=== PATIENT | male | born 1980 | race Caucasian/White ===

== ENCOUNTER → 2016-07-29 | Outpatient (CLI) | payer OTHER ==
[2016-06-18 22:08] VITALS: BP 144/87
[~2016-07-29] MED LIST: IBUP-1060 PO
--- NOTE | 2016-07-29 13:16 | KCIC ---
PROCEDURE CT of the sternoclavicular joints HISTORY Sternoclavicular joint separation on the right. Lifting injury a few months ago. COMPARISON None TECHNIQUE Standard noncontrast images are obtained through the sternoclavicular joints. Exposure: One or more of the following individualized dose reduction techniques were utilized for this exam: 1. Automated exposure control. 2. Adjustment of the mA and/or kV according to patient size. 3. Use of iterative reconstruction technique. FINDINGS Subtle elevation of the right clavicle relative to the left, as seen on the coronal images. On the axial images and coronal images, there is slight widening of the right sternoclavicular joint as compared with the left. No gross dislocation. No evidence of asymmetric soft tissue swelling about either sternoclavicular joint. No acute fracture. No aggressive bone destruction. No evidence of fluid collection. Visualized lung apices are clear.. IMPRESSION Subtle widening of the right sternoclavicular joint. No gross dislocation. Electronically signed by: Lew Vega MD (Jul 29, 2016 13:14:50)
== END | disposition home or self-care (01) ==
LOC: KCIC CT 10:18
PROVIDERS: ATTEND Orthopaedic Surgery Sports Medicine
DX: S43.201A Unspecified subluxation of right sternoclavicular joint, initial encounter (principal)
CPT/HCPCS: 73200

== ENCOUNTER 2016-08-17 06:11 | Observation (INO) | payer OTHER ==
[2016-08-17] VITALS (10 sets, daily range): BP systolic 123–159; BP diastolic 62–93
[~2016-08-17] VITALS: Ht 182.9 cm; Wt 124.7 kg
[~2016-08-17 06:11] MED LIST changes: +CEFAZOLIN 2GM PREMIX 50 ML IV PRN
[2016-08-17] MEDS ORDERED: LIDOCAINE 1% PF 30 ML VIAL. ONE (06:57)
[2016-08-17] MEDS ORDERED: BUPIVACAINE MPF 0.5% 30 ML VIAL. ONE (06:57)
[2016-08-17] MEDS ORDERED: FENTANYL PF 100 MCG/2 ML VIAL. IV PRN (07:00)
[2016-08-17] MEDS ORDERED: HYDROMORPHONE 2 MG/ML VIAL. IV PRN ×2 (07:00→07:45)
[2016-08-17] MEDS ORDERED: IV RINGERS,LACTATED 1000ML 1,000 ML IV SCH (07:00)
[2016-08-17] MEDS ORDERED: PROCHLORPERAZINE 10 MG/2 ML VIAL. IV PRN (07:00)
[2016-08-17] MEDS ORDERED: ONDANSETRON PF 4 MG/2 ML VIAL. IV PRN (07:00)
[2016-08-17] MEDS ORDERED: LIDOCAINE 1% 1 ML SYRINGE. ID PRN (07:00)
[2016-08-17] MEDS ORDERED: MORPHINE SULFATE 2 MG/ML DISP.SYRIN. IV PRN (07:00)
[2016-08-17] MEDS ORDERED: ROCURONIUM 50 MG/5 ML VIAL. ONE (07:02)
[2016-08-17] MEDS ORDERED: PROPOFOL 20 ML IV ONE ×2 (07:02→07:45)
[2016-08-17] MEDS ORDERED: SUCCINYLCHOLINE 200 MG/10 ML VIAL. ONE (07:02)
[2016-08-17] MEDS ORDERED: LIDOCAINE 2% 100 MG/5 ML DISP.SYRIN. ONE (07:02)
[2016-08-17] MEDS ORDERED: FENTANYL PF 100 MCG/2 ML VIAL. ONE ×2 (07:02→08:11)
[2016-08-17] MEDS ORDERED: ACETAMINOPHEN INTRAVENOUS 100 ML IV ONE (07:10)
[2016-08-17] MEDS ORDERED: FAMOTIDINE 20 MG/2 ML VIAL ONE (07:26)
[2016-08-17] MEDS ORDERED: DEXAMETHASONE SOD PHOS 20 MG/5 ML VIAL. ONE (07:26)
[2016-08-17] MEDS ORDERED: DEXTROSE 50% 25 GM / 50ML DISP.SYRIN. IV PRN (07:45)
[2016-08-17] MEDS ORDERED: METOCLOPRAMIDE HCL 10 MG/2 ML VIAL. IV PRN (07:45)
[2016-08-17] MEDS ORDERED: OXYCODONE/APAP 7.5/325 TABLET. PO PRN (07:45)
[2016-08-17] MEDS ORDERED: CALCIUM CARBONATE 500 MG TAB.CHEW PO PRN (07:45)
[2016-08-17] MEDS ORDERED: PROCHLORPERAZINE 5 MG TABLET. PO PRN (07:45)
[2016-08-17] MEDS ORDERED: TRAMADOL 50 MG TABLET. PO PRN ×2 (07:45)
[2016-08-17] MEDS ORDERED: ZOLPIDEM 5 MG TABLET. PO PRN (07:45)
[2016-08-17] MEDS ORDERED: 0.9 % SODIUM CHLORIDE 10 ML DISP.SYRIN. IV PRN (07:45)
[2016-08-17] MEDS ORDERED: OXYCODONE/APAP 5/325 TABLET. PO PRN (07:45)
[2016-08-17] MEDS ORDERED: ACETAMINOPHEN 325 MG TABLET. PO PRN (07:45)
[2016-08-17] MEDS ORDERED: HYDROCODONE/APAP 7.5/325MG TABLET. PO PRN (07:45)
[2016-08-17] MEDS ORDERED: CEFAZOLIN 2GM PREMIX 50 ML IV SCH (08:00)
[2016-08-17] MEDS ORDERED: ONDANSETRON PF 4 MG/2 ML VIAL. ONE (08:09)
[2016-08-17] MEDS ORDERED: GLYCOPYRROLATE 1 MG/5 ML VIAL. ONE (08:09)
[2016-08-17] MEDS ORDERED: NEOSTIGMINE METHYLSULFATE 5 MG/5 ML SYRINGE. ONE (08:10)
[2016-08-17] MEDS ORDERED: LIDOCAINE 1%/EPI 1:100,000 20 ML VIAL. ONE (08:25)
[2016-08-17] MEDS ORDERED: EPHEDRINE PF IN SALINE 50 MG/5 ML DISP.SYRIN. IV ONE (08:55)
[2016-08-17] MEDS: SENNOSIDES/DOCUSATE 8.6/50MG TABLET. PO SCH (09:00)
[2016-08-17] MEDS: FERROUS SULFATE 325 MG TABLET PO SCH ×2 (09:00→18:00)
[2016-08-17] MEDS: MULTIVITAMIN with MINERAL TABLET. PO SCH (09:00)
--- NOTE | 2016-08-17 09:39 | PDOC ---
BRIEF OPERATIVE NOTE Date: Aug 17, 2016 Pre-Op Diagnosis R SCJ instability Post-Op Diagnosis same Procedure Performed Right SCJ recon with allograft Surgeon Barbara Blankenship Visual C Developer Ana M Anesthesiologist [place] Blood Loss 25mL Complications none TISHA BLANKENSHIP II, MD Aug 17, 2016 09:39
[2016-08-17] MEDS: FENTANYL PF 100 MCG/2 ML VIAL. IV PRN ×5 (09:53→11:22)
--- NOTE | 2016-08-17 12:34 | OP ---
DATE OF SURGERY: 08/17/2016 SURGEON: Enrique Blankenship MD SECOND SURGEON: Marc Jimenez MD FINANCIAL SALES ADVISOR: Ayanna Viramontes. ANESTHESIA: General. PREOPERATIVE DIAGNOSIS: Right sternoclavicular joint instability. POSTOPERATIVE DIAGNOSIS: Right sternoclavicular joint instability. PROCEDURE PERFORMED: Open right sternoclavicular joint reconstruction with allograft. COMPLICATIONS: None. BLOOD LOSS: 25 mL. 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 Clinical examination was consistent with the above diagnosis. Radiographs and the CAT scan were reviewed prior to surgery. I had a discussion of risks, benefits, alternatives to conservative versus operative treatment and because of an inability to do his job secondary to pain, he elected for surgery. DESCRIPTION OF PROCEDURE: The patient was greeted in the preoperative area by myself. The correct region was marked and verified. He was taken to the operative suite and antibiotics were started en route. He was transferred gently supine to the OR table and had successful induction of general anesthesia. We then placed him into a modified beach chair position with a large pad under his legs and he sat up at about 20 degrees. His C-spine was maintained more extended than in normal position to allow for better access to the area. His head was secured in place. We then proceeded to prep and drape with plastic U-drapes and then a laparotomy drape that was cut to allow more room and exposure of his chest and sternum. We then placed an [place] over the exposed skin. We then conducted our standard preoperative time-out. I palpated and marked his surface anatomy and made a curvilinear incision over his medial sternoclavicular joint on the right side. Dr. Jimenez assisted me throughout the exposure. I dissected subcutaneous tissue with cautery and cauterized bleeders as they were encountered. I incised the fascia in line with skin incision, identified the sternocleidomastoid muscle belly at this level over the sternum. I took down less than 50% of the lateral insertion of this for exposure or better visualization of the sternoclavicular joint. After identifying the sternal notch, the interval between the strap muscles was divided with electrocautery and then a combination of electrocautery and blunt dissection was carried out along the posterior sternum as far as we were able to palpate. After this, I palpated for the superior borders of the clavicle and incised the periosteum and soft tissue over this to expose the medial most 6 cm of the clavicle. Using combination of electrocautery and a [place], I exposed the bone in anticipation of my drill holes. I then transected the anterior sternoclavicular ligament, which was a little patulous. The reason I did this was to try to sort over top of my graft at this position. I then used a 4.0 drill bit and with Dr. Jimenez protecting the posterior aspect of the sternum, I placed 2 drill holes from anterior to posterior and then shuttled a #2 Ethibond through each of these using a [employer] suture passer. This maneuver was repeated at the clavicle, which gave me 4 drill holes. After this, we passed our graft. It should be noted that Ayanna was necessary for this procedure as she was busy with the graft preparation while Dr. Jimenez and I were doing the exposure and placing the drill holes. We used a peroneus longus allograft and I used approximately 40% of the width of this, which I incised in line with the fibers in its midportion, then used hemostat to spread apart this hole followed by a string cheese technique. The graft was then tubularized with a #2 running Ultrabraid at both ends. Now, we then shuttled the graft through drill holes using Ethibond in a [id number]-cj-[id number] fashion. I then tied a square knot with the graft itself while Dr. Jimenez and Ayanna pulled the traction in line with the knots on suture tails. I then used a #2 Ultrabraid in a ukbkti-jy-dlxib fashion, 4 of them, to secure the tail of the graft to itself as well as the knot and the remaining tail. This gave a good repair. Prior to tying the graft and securing it, I had lifted up or I had positioned his arm with his shoulder girdle being elevated by my hip and held in place to give better reduction of the joint. With the graft secured, I then closed the periosteum and tighten the capsule over the graft of the sternoclavicular ligament. I then injected approximately 20 mL of a local anesthetic mixture into the josse-incisional area and then closed the deep layer with simple interrupted 0 Vicryl. Inverted interrupted 2-0 was used for subcutaneous tissue and running 4-0 Monocryl was used for the skin. Sterile dressing was applied. The operative field was then cleansed and dried and the patient's right upper extremity was then placed into a sling. Postop plan is to admit him for observation overnight. He will be nonweightbearing x 6 weeks. Prior to completion of wound closure, all counts were reported correct x 2. No complications. The patient tolerated the surgery well. At the conclusion of surgery, he was extubated and transferred gently supine to the recovery room cart and taken to PACU in stable and extubated condition. ENRIQUE BLANKENSHIP MD DR: LYRIC/zoe JOB#: [id number] / [id number] REI
[2016-08-17] MEDS: CEFAZOLIN 2GM PREMIX 50 ML IV SCH ×2 (14:26→20:50)
[2016-08-17] MEDS: IV DEXTROSE 5 %-0.45 % NACL 1,000 ML IV SCH ×2 (15:11→17:43)
[2016-08-17] MEDS: HYDROCODONE/APAP 10/325 TABLET. PO PRN ×2 (17:43→20:46)
[2016-08-17] MEDS ORDERED: FLU VACC QUAD 2016-17 (36MOS+)/PF 0.5 ML SYRINGE. VAX IM ONE (18:30)
[2016-08-17] MEDS: CELECOXIB 200 MG CAPSULE PO SCH (20:45)
[2016-08-18] MEDS: HYDROCODONE/APAP 10/325 TABLET. PO PRN ×2 (00:33→09:00)
[2016-08-18] MEDS: CEFAZOLIN 2GM PREMIX 50 ML IV SCH (03:23)
[2016-08-18 03:26] VITALS: BP 128/84
[2016-08-18] MEDS: IV DEXTROSE 5 %-0.45 % NACL 1,000 ML IV SCH (03:43)
[2016-08-18] MEDS ORDERED: MAGNESIUM HYDROXIDE 2,400 MG/30 ML ORAL.SUSP. PO PRN (06:00)
--- NOTE | 2016-08-18 08:30 | DISCH ---
DISCHARGE INSTRUCTIONS Condition on Discharge Condition on Discharge: Stable Activity After Discharge Activity Instructions for Disc: Other, see below Other activity instructions: arm to remain in sling Bathing Instructions: Shower-keep dressing dry Lifting Instructions after Dis: No heavy lifting, No pulling or pushing, Do not lift >10 pounds Weight Bearing Status after Di: Non weight bearing Diet after Discharge Diet after Discharge: Regular Wound Incision Care Wound/Incision Care: Ice to area for comfort, Keep wound/cast CDI, Do not change dressing Contacting the DR. after DC Call your doctor for: Concerns you may have Follow-Up Follow up with: Yaakov in 2wks Treatment/Equipment after DC Adaptive Equipment Issued: None TISHA BLANKENSHIP II, MD Aug 18, 2016 08:30
--- NOTE | 2016-08-18 08:33 | PDOC ---
ORTHO PROGRESS NOTES Subjective Pain controlled. Denies any CP, SOB, cough. Tolerating diet. Vitals Vital Signs Date Time Temp Pulse Resp B/P Pulse Ox O2 Delivery O2 Flow Rate FiO2 08/18/16 07:51 Room Air 08/18/16 03:26 97.4 84 16 128/84 96 97.4 08/17/16 11:20 3.0 Notes A and A incision, small amount dried blood, otherwise c/d/i RUE: m/s intact m/r/u, fingers warm Assessment and Plan home today NWB TISHA ARTEAGA II, MD Aug 18, 2016 08:33
[2016-08-18 08:55] VITALS: BP 123/68
[2016-08-18] MEDS: SENNOSIDES/DOCUSATE 8.6/50MG TABLET. PO SCH (08:57)
[2016-08-18] MEDS: MULTIVITAMIN with MINERAL TABLET. PO SCH (08:57)
[2016-08-18] MEDS: CELECOXIB 200 MG CAPSULE PO SCH (08:57)
[2016-08-18] MEDS: FERROUS SULFATE 325 MG TABLET PO SCH (08:57)
[2016-08-18] MEDS ORDERED: DOCU-27 PO (09:46)
[2016-08-18] MEDS ORDERED: ONDA4TAB10 SL (09:46)
[2016-08-18] MEDS ORDERED: HYDR-2672 PO (09:47)
[2016-08-18] MEDS ORDERED: BISACODYL 10 MG SUPP.RECT PR PRN (16:00)
--- NOTE | 2016-08-19 08:55 | PDOC3 ---
Discharge Summary Visit Information Date of Admission: Aug 17, 2016 Date of Discharge: Aug 18, 2016 Admitting Diagnosis: right sternoclavicular joint instability Final Diagnosis Problems Medical Problems: (1) Sternoclavicular separation Status: Acute Brief Hospital Course Allergies Allergies Coded Allergies Type Severity Reaction Last Updated Verified No Known Drug Allergies 08/16/16 No Vital Signs Vital Signs Date Time Temp Pulse Resp B/P Pulse Ox O2 Delivery O2 Flow Rate FiO2 08/18/16 10:00 Room Air 08/18/16 08:55 97.3 82 16 123/68 94 97.3 Brief Hospital Course Mr. Bagley is a 35 old male who presented to my clinic with complaints of medial sternoclavicular pain on the right side after an injury while at work. He tells me he feels like the joint Shifting and causing a lot of pain and interfering with his ability to work. Clinical and radiographic evidence for consistent with sternoclavicular joint instability. We had a discussion the risks, benefits, and alternatives to proceeding with sternoclavicular joint reconstruction and he elected to proceed. He tolerated surgery well and recovered well from anesthesia and the PACU. He was kept overnight for observation. He did require some IV pain medicine initially, prior to discharge his pain was controlled with oral pain medicine. His hospital course was uneventful. He was hemodynamically stable, afebrile, maintaining his ADLs, having normal bowel and bladder function. His incision was clean dry and intact at the time of discharge. Discharge Information Condition at Discharge: Stable Follow Up: Weeks Disposition/Orders: D/C to Home Scheduled Docusate Sodium (Colace) 1 CAP PO BID (Reported) Ondansetron (Zofran Odt) 1 TAB SL Q8HRS (Reported) Scheduled PRN Hydrocodone Bit/Acetaminophen (Hydrocodone-Apap 10-325 ) 1 TAB PO PRN Q4HRS PRN PRN PAIN (Reported) Ibuprofen (Ibuprofen) 800 MG PO PRN Q6HRS PRN PRN INFLAMMATION Patient Instructions Patient Instructions He will be nonweightbearing right upper extremity for 6 weeks. He will remain in the sling for 6 weeks. Wound care instructions were discussed with him. We will see him back in 2 weeks, sooner should problems arise. Worrisome signs and symptoms that should prompt focal tomatoes were discussed. TISHA BLANKENSHIP II, MD Aug 19, 2016 08:55
== END 2016-08-18 11:15 | disposition home or self-care (01) ==
LOC: SURG 06:11 → 4 SOUTHEST 10:00
PROVIDERS: ADMIT Orthopaedic Surgery Sports Medicine; ATTEND Orthopaedic Surgery Sports Medicine
DX: M25.311 Other instability, right shoulder (principal)
CPT/HCPCS: 23530; 96365; 96375; 96376; 97161; 97165; 97530; A4215; C1713; C1762; G0378; G0379; G8978; G8979; G8980; J0131; J0330; J0690; J0780; J1100; J2405; J2704; J2710; J3010; J3490; J7120; Q0164; S0028